=== PATIENT | male | born 1925 | race Caucasian/White ===

== ENCOUNTER 2017-03-20 19:46 | Inpatient (IN) | payer MEDICARE, SELFPAY ==
--- NOTE | ~2017-03-20 | CN ---
Consultation Report [id number] [place]. [address] NAME: DAVID BUI : [birth year] STATUS : ADM IN PAT#: [id number] AGE: 89 ADM/REG DATE : 03/21/17 MR#: [id number] REPORT SERV DATE: 03/21/17 DICTATED BY: DATE: REPORT STATUS : Draft TRANSCRIBED BY: MODL DATE: 03/21/17 CONSULTATION DATE OF CONSULTATION: 03/21/2017 CHIEF COMPLAINT/REASON FOR CONSULT: Presyncope and asymptomatic bradycardia. PRIMARY ABRASIVE COATING MACHINE OPERATOR: Dash Boston M.D. HISTORY OF PRESENT ILLNESS: Mr. Bui is a very delightful 89-year-old gentleman, who is very active, who has been having increasing lightheadedness most recently on Thursday morning on the day of admission, the patient was at the bank standing up when he suddenly became weak and dizzy. He got very pale and felt like he might pass out. He states that this is the worst episode yet. He has not had any chest pain. He denies any shortness of breath. He is quite active. He has a big garden. He said he is the best card in the formerly [facility] and weather permitting he works in his yard daily without symptoms with the exception of lightheadedness. PAST MEDICAL HISTORY: 1. Coronary artery disease, status post PCI to the RCA in 2009. 2. Hypertension. 3. Hyperlipidemia. 4. Paroxysmal atrial fibrillation. 5. Right bundle branch block. 6. Left anterior fascicular block. SOCIAL HISTORY: The patient is quite active. He lives in his own home. He does not smoke tobacco, but he has chewed tobacco for about 25 to 30 years. He does not use alcohol or extracurricular drugs. FAMILY HISTORY: Negative. ALLERGIES: NO KNOWN DRUG ALLERGIES. OUTPATIENT MEDICATIONS: 1. Aspirin 81 mg p.o. daily. 2. Uroxatral. 3. B complex vitamins. 4. Clopidogrel 75 mg p.o. daily. 5. Meclizine 12.5 mg t.i.d. 6. Milk of magnesia. 7. Simvastatin 40 mg p.o. daily. REVIEW OF SYSTEMS: Consultation Report [address] [place]. [address] NAME: DAVID BUI : [birth year] STATUS : ADM IN PAT#: [id number] AGE: 89 ADM/REG DATE : 03/21/17 MR#: [id number] REPORT SERV DATE: 03/21/17 DICTATED BY: DATE: REPORT STATUS : Draft TRANSCRIBED BY: MODL DATE: 03/21/17 All systems were reviewed and is negative except for dictated in HPI. PHYSICAL EXAMINATION: VITAL SIGNS: The patient is afebrile, pulse ranged between 45 and 72 beats per minute, oxygen saturations 95% on room air, respirations 18, blood pressures range between 139/65 to 164/70, and weight is 63 kg. GENERAL: Mr. Bui is a well-appearing 89-year-old gentleman, who appears younger than his stated age. NECK: No jugular venous distention. No carotid bruits. HEART: Bradycardic, soft S1 and S2. I could not appreciate murmurs, rubs, or gallops. LUNGS: Clear to auscultation in all bailey. ABDOMEN: Soft and nontender. I could not appreciate renal bruits. EXTREMITIES: Femoral pulses +2 bilaterally. There are bilateral femoral bruits. There is trace edema at the ankles bilaterally. MUSCULOSKELETAL: No clubbing or cyanosis of the digits. Osteoarthritic changes noted in the hands bilaterally. NEUROLOGIC: The patient is mildly hard of hearing, but otherwise I could not appreciate focal neurologic deficits. REVIEW OF TEST RECORDS/MEDICAL DECISION MAKING: EKG performed on admission documented sinus bradycardia at 48 beats per minute. There is a right bundle branch block and left anterior fascicular block with a left axis deviation present. There is no ischemic ST-T segment changes. A chest x-ray, performed on admission documented no evidence of acute cardiopulmonary disease. Carotid ultrasound performed yesterday demonstrated category one less than 50% blockage bilaterally. A brain CT examination performed without contrast demonstrated cerebral and cerebellar atrophy with intracranial atherosclerosis, but no acute intracardiac process present. LABORATORY RESULTS: Demonstrated hemoglobin of 12.8, hematocrit of 38.1, and platelet count of 215, INR of 1.1. Sodium 146, potassium 3.9, BUN 14, creatinine 0.87, total cholesterol 136, HDL 41, LDL 78, cardiac troponin is 0.02 x3. TSH 2.03. BNP is 36. IMPRESSION REPORT AND PLAN: 1. Presyncope in the setting of bradycardia. 2. Right bundle branch block with a left axis deviation, likely left anterior fascicular block and bifascicular block. 3. Paroxysmal atrial fibrillation, on anticoagulation for his primary director of corporate responsibility. 4. History of coronary artery disease, status post PCI on 12/2009. RECOMMENDATIONS: 1. Would check echocardiogram to evaluate left ventricular systolic function. 2. Continue telemetry monitoring at this time. 3. Would avoid any rate controlling agents, calcium channel blockers and beta blockers. 4. I will have my electrophysiology colleagues also reviewed this case for possible pacemaker placement versus loop recorder or event monitor. Consultation Report [id number] [place]. [address] NAME: DAVID BUI : [birth year] STATUS : ADM IN PAT#: [id number] AGE: 89 ADM/REG DATE : 03/21/17 MR#: [id number] REPORT SERV DATE: 03/21/17 DICTATED BY: DATE: REPORT STATUS : Draft TRANSCRIBED BY: MODL DATE: 03/21/17 5. It has been my pleasure to participate in this patient's care. We will follow with you. [facility] Jayne Harris M.D. / [id number] CC: Matthew Pérez Jr, MD
--- NOTE | ~2017-03-20 | DS ---
Discharge Summary [facility] [address] [place]. [address] NAME: DAVID BUI : [birth year] STATUS : ADM IN [facility]#: [id number] AGE: 89 ADM/REG DATE : 03/21/17 MR#: [id number] REPORT SERV DATE: 03/23/17 DICTATED BY: Linnea ZELAYA DATE: 03/23/17 REPORT STATUS : Draft TRANSCRIBED BY: MODL DATE: 03/23/17 ADMISSION DATE: 03/20/2017 DISCHARGE DATE: 03/23/2017 DIAGNOSES AT DISCHARGE: Syncope secondary to symptomatic bradycardia from sick sinus syndrome, status post permanent pacemaker. CONSULT: Electrophysiology/Cardiology. PROCEDURE: Pacemaker placement. BRIEF HOSPITAL COURSE: An 89-year-old male patient was admitted with dizziness and syncope and found to have underlying conduction problems consistent with intrinsic electrical disease of the heart and sick sinus syndrome, seen and evaluated by electrophysiology, ultimately taken for permanent pacemaker, which was placed on 03/23/2017 without difficulty. Following the procedure, the patient was asymptomatic. Followup x-ray was free of pneumothorax. The patient was cleared for discharge home by Cardiology and Electrophysiology. He will follow up with his primary air transportation provider as well as with his primary care provider. He will continue his current home medications per his med reconciliation form. Dr. Boston, his primary air transportation provider, will see him on 05/05/2017, and he will follow up in [facility] on 04/14/2017. He will follow up with Dr. Chen, in [facility], his primary care provider in two weeks. DICTATED BY: Linnea Zelaya M.D. [facility] Linnea Zelaya M.D. / [id number] CC: Matthew Pérez Jr, MD
--- NOTE | ~2017-03-20 | HP ---
History And Physical [facility] [address] [place]. [address] NAME: DAVID BUI : [birth year] STATUS : ADM Jaun PAT#: [id number] AGE: 89 ADM/REG DATE : 03/20/17 MR#: [id number] REPORT SERV DATE: 03/20/17 DICTATED BY: BARBARA NUÑEZ DATE: 03/20/17 REPORT STATUS : Draft TRANSCRIBED BY: MODKylah DATE: 03/20/17 DATE OF ADMISSION: 03/20/2017 CHIEF COMPLAINT: Near syncope, dizziness that has been getting progressively worse over the last couple of months. HISTORY OF PRESENT ILLNESS: This is a very pleasant 89 years old gentleman. He has a history of coronary artery disease, status post prior PTCA and stent, prior history of hypertension not on current medication, hyperlipidemia, history of prostate cancer which has been started with hormone treatment every six months presenting today to [facility] with complaints of near syncopal episodes that was happening today. The patient has been complaining of dizziness with intermittent dizzy spells according to the patient for few years, and that has become progressively worse over the last couple of months. The patient although he has this dizzy spell never passed out. He fell couple of weeks ago he said possibly related to his dizziness and unsteadiness but he never passed out completely. He has been seen by his primary care provider yesterday who prescribed him some meclizine as needed, today though he went to his bank, he is very active and while he was sitting in the line to make his payment, he had an episode of dizziness. He felt that he is going to pass out, became diaphoretic. He never passed out. He has been placed in the chair, and this did not last very long though the patient thinks that it lasted for few minutes. He has been aware of what was going on at the time of the event and after that, he has been taken back by his family at home and brought him to [facility] for further evaluation and treatment. He had some weakness but no other neurological complaints like headaches although when he has had these episodes of dizziness and presyncope, he feels his head in full, but he did not have any diplopia, he did not have any dysphagia, dysarthria. He has not had any chest pain or shortness of breath. No palpitations. No nausea or vomiting. No diarrhea or constipation. No increased urinary frequency or urgency. No other complaints. The patient has been evaluated in the emergency room, and Hospitalist Service has been asked for admission, further evaluation, and treatment. PAST MEDICAL HISTORY: Significant for coronary artery disease status post prior stents, history of prostate cancer, and hyperlipidemia. PAST SURGICAL HISTORY: Includes PTCA and stent, also cataract surgery, and prostate biopsy. SOCIAL HISTORY: Denies tobacco, alcohol, or IV drugs. ALLERGIES: HE DOES NOT HAVE ANY DRUG ALLERGIES. FAMILY HISTORY: Significant for coronary artery disease, cancer, and diabetes type 2. MEDICATIONS: At home include Uroxatral, Artificial Tears, aspirin, B complex, Plavix, meclizine, milk of magnesia, and Zocor. REVIEW OF SYSTEMS: A 14-point review of systems has been obtained, and pertinent positive has been listed into History And Physical [address] [address] NAME: DAVID BUI : [birth year] STATUS : ADM Jaun PAT#: [id number] AGE: 89 ADM/REG DATE : 03/20/17 MR#: [id number] REPORT SERV DATE: 03/20/17 DICTATED BY: BARBARA NUÑEZ DATE: 03/20/17 REPORT STATUS : Draft TRANSCRIBED BY: NAWAF DATE: 03/20/17 the history of present illness. Otherwise, negative except those underlying above. PHYSICAL EXAMINATION: VITAL SIGNS: The patient is afebrile. Blood pressure 163/73 heart rate 72, respiratory rate 14, saturating 97% on room air. GENERAL: He is a very pleasant, well-developed, well-nourished gentleman, in no acute distress. He is alert and oriented x3. He is nonfocal. He follows all his commands appropriately. HEENT: Shows pupils equal, round, reactive to light. Extraocular movements intact. NECK: No JVD. No lymphadenopathy. No thyromegaly appreciated. CHEST: Eval shows bilateral air entry. Clear anteroposterior. No wheezes, crackles, or rhonchi appreciated. CARDIOVASCULAR: He has regular rate and rhythm. S1, S2 positive. No S3, no S4. No murmurs, rubs, or gallops appreciated. ABDOMEN: Soft with positive bowel sounds. Nontender. No guarding. No rebound. EXTREMITIES: No clubbing, cyanosis, or edema. NEUROLOGIC: He is alert and oriented x3. He is nonfocal. He follows all his commands appropriately. Cranial nerves are intact. LABORATORY DATA: Labs from today include sodium of 144, potassium 4.1, chloride 106, CO2 of 29, BUN 13, creatinine 0.91, glucose 111, calcium 9.1, magnesium 2.6, troponin I less than 0.02. White count 9.8, hemoglobin 13.3, hematocrit 39.7, platelets 223. INR is 1.1. His UA has been negative. His chest x-ray, portable, PA and lateral, performed in the emergency room shows no acute cardiopulmonary abnormality that could be identified. EKG shows normal sinus rhythm and right bundle-branch block with the left anterior fascicular block. Also on CT of the brain without contrast has shown moderate cerebral and cerebellar atrophy, but no acute abnormalities. ASSESSMENT: 1. This is a very pleasant 89 years old gentleman with near syncope and dizziness. 2. History of coronary artery disease, status post PTCA and stent. 3. Hyperlipidemia. 4. History of prostate cancer. PLAN: 1. The patient is going to be admitted to Hospitalist Service. We are going to place him on IV fluids. Orthostatics have been checked in the emergency room and has been negative. We are going to order an MRI of the brain, 2D echo, and carotid ultrasound. Rule out for AL by serial cardiac enzymes, serial EKGs. Continue aspirin and Plavix and also consult Neurology Dr. Dawkins per patient's family request. 2. History of coronary artery disease, status post stent. Continue aspirin and Plavix. Rule him out for AL by serial cardiac enzymes, serial EKGs. Check on 2D echo as well. History And Physical [address] [address] NAME: DAVID BUI : [birth year] STATUS : ADM Jaun PAT#: [id number] AGE: 89 ADM/REG DATE : 03/20/17 MR#: [id number] REPORT SERV DATE: 03/20/17 DICTATED BY: BARBARA NUÑEZ DATE: 03/20/17 REPORT STATUS : Draft TRANSCRIBED BY: MODL DATE: 03/20/17 3. History of prostate cancer. We are going to continue to check his orthostatics. We are going to check on vitamin B12 and folic acid. Check on TSH and a free T4 and magnesium and phosphorus level. Further workup and recommendation pending above. It is worthwhile to note that the patient is going to be followed by the hospitalist service. [facility]/MODL Barbara Nuñez M.D. / [id number] CC: Matthew Pérez Jr, MD
--- NOTE | ~2017-03-20 | CN ---
Consultation Report [id number] [place]. [address] NAME: DAVID BUI : [birth year] STATUS : ADM IN [facility]#: [id number] AGE: 89 ADM/REG DATE : 03/21/17 MR#: [id number] REPORT SERV DATE: 03/23/17 DICTATED BY: ROEL ISABEL DATE: 03/23/17 REPORT STATUS : Draft TRANSCRIBED BY: MODL DATE: 03/23/17 ELECTROPHYSIOLOGY CONSULTATION DATE OF CONSULTATION: PRIMARY DISTRIBUTION ENGINEERING TECHNOLOGIST: Dash Boston M.D. INDICATIONS: Symptomatic sinus node dysfunction. HISTORY OF PRESENT ILLNESS: David Bui is an 89-year-old man, history of coronary disease, remote PCI, intermittent dizzy spells, hypertension, hyperlipidemia, and right bundle-branch block conduction pattern. The patient presented to the emergency room with a significant lightheaded spell, near syncope, and diaphoresis. He was admitted through the emergency room overnight and has been found to have intermittent episodes of a slow heart rate. He demonstrates sinus versus junctional bradycardia down to 40 beats per minute during the daytime hours. There was apparently some lightheaded spells associated with this. No orthopnea, PND, or complaints of active chest pain. Troponin was negative x3. No orthopnea, PND, or lower extremity edema. PAST MEDICAL HISTORY: As described. PRESENT MEDICATIONS: Aspirin, Plavix, simvastatin, multivitamin, folic acid, thiamine, and B complex vitamins. ALLERGIES: NONE KNOWN. SOCIAL HISTORY: No present smoking. FAMILY HISTORY: Reviewed. Known for coronary artery disease. REVIEW OF SYSTEMS: As per the HPI. Otherwise, all other review of systems. PHYSICAL EXAMINATION: VITAL SIGNS: Blood pressure 138/60, pulse is 93, and respiratory rate is 18. GENERAL: Appears stated age, no distress. EYES: Sclerae anicteric, no arcus senilis. MOUTH: Oral mucosa moist, lips acyanotic. NECK: Jugular venous pressure normal, no carotid bruits. LUNGS: Clear to auscultation bilaterally, normal inspiratory effort. CARDIAC: Regular rate and rhythm, no murmurs, gallops or rubs. ABDOMEN: Soft, nondistended, nontender. EXTREMITIES: No edema. Consultation Report [id number] [place]. [address] NAME: DAVID BUI : [birth year] STATUS : ADM IN PAT#: [id number] AGE: 89 ADM/REG DATE : 03/21/17 MR#: [id number] REPORT SERV DATE: 03/23/17 DICTATED BY: ROEL ISABEL DATE: 03/23/17 REPORT STATUS : Draft TRANSCRIBED BY: NAWAF DATE: 03/23/17 SKIN: Warm and dry. NEURO/PSYCH: Alert and oriented, nonfocal, mood appropriate. LABORATORY AND DIAGNOSTIC DATA: Potassium 4.0, creatinine 0.9. Hemoglobin 12.8. Telemetry currently sinus rhythm. A junctional bradycardia noted. IMPRESSION: 1. Sinus node dysfunction with symptoms of significant presyncope. 2. Coronary artery disease without complaints of active angina. Troponin negative x3. 3. ECG demonstrates sinus bradycardia with bifascicular block. TSH is 2. RECOMMENDATION: Plans with implantation of a dual-chamber cardiac pacing system. I have discussed with the patient and family the rationale, logistics, and risk. The risks include, but not limited to bleeding, infection, vascular complications, failure to place lead, lead dislodgement, pneumothorax. All questions were answered. The patient and family wished to proceed. [facility] Roel Isabel M.D. / [id number] CC: Matthew Pérez Jr, MD
[2017-03-20 14:33] LABS: BASOPHILS 0.3 %; BASOPHILS ABSOLUTE 0.03 10/3/uL (0.0-0.16); EOSINOPHILS 0.4 %; EOSINOPHILS ABSOLUTE 0.04 10/3/uL (0.0-0.53); HEMATOCRIT 39.7 % (40.0-51.0); HEMOGLOBIN 13.3 g/dL (13.6-17.8); IMMATURE GRANULOCYTES 0.3 %; IMMATURE GRANULOCYTES ABSOLUTE 0.03 10/3/uL (0.0-0.11); LYMPHOCYTES 11.6 %; LYMPHOCYTES ABSOLUTE 1.14 10/3/uL (0.67-4.30); MEAN CORPUS HGB CONC 33.5 g/dL (32.0-36.0); MEAN CORPUSCULAR HEMOGLOB 30.1 pg (26.0-34.0); MEAN CORPUSCULAR VOLUME 89.8 fL (80-100); MONOCYTES 3.2 %; MONOCYTES ABSOLUTE 0.31 10/3/uL (0.21-1.20); NEUTROPHILS 84.2 %; NEUTROPHILS ABSOLUTE 8.24 10/3/uL (2.02-8.40); PLATELET COUNT 223 10/3/uL (150-400); RBC DISTRIBUTION WIDTH 12.9 % (12.0-16.0); RED CELL COUNT 4.42 10/6/uL (4.7-6.1); WHITE BLOOD CELLS 9.8 10/3/uL (4.5-10.5)
[2017-03-20 14:34] LABS: INTERNATIONAL NORMAL RATI 1.1 UNITS (-); PARTIAL THROMBO TIME 26.9 SEC (22.5-37.2); PROTIME (NOT ORD) 13.8 SEC (12.0-14.5)
[2017-03-20 14:40] LABS: MANUAL DIFF NO %
[2017-03-20 14:46] LABS: ASCORBIC ACID (UR NOT ORDER) NEG (NEG); BILIRUBIN, URINE NEGATIVE (NEG); ER URINALYSIS TAT 0 Hrs 30 Mins; KETONE, URINE NEGATIVE (NEG); LEUKOCYTE ESTERASE(NOT OR NEG (NEG); NITRITE (URINE) NEG (NEG); WBC (NOT ORDERED) (RFLEX) 3 (0-5)
[2017-03-20 14:47] LABS: BUN (BLOOD UREA NITROGEN) 13 MG/DL (6-23); CALCIUM, SERUM 9.1 MG/DL (8.5-10.4); CHLORIDE, SERUM 106 MMOL/L (96-112); CO2 (CARBON DIOXIDE) 29 MMOL/L (24-34); CREATININE 0.91 MG/DL (0.70-1.30); GFR AFRICAN AMERICAN 86 ML/MIN (>=60); GFR NON AFRICAN AMERICAN 74 ML/MIN (>=60); GLUCOSE, SERUM 111 MG/DL (60-99); POTASSIUM, SERUM 4.1 MMOL/L (3.5-5.3); SODIUM, SERUM 144 MMOL/L (135-148); TROPONIN I <0.02 NG/ML (<0.05)
[2017-03-20 14:49] LABS: ER CBC TAT 0 Hrs 11 Mins
[~2017-03-20 19:46] MED LIST: ASAB PO; B COMPLETE PO; MCZ25 PO; MOMUD PO; PLAVIX PO; TEARS PURE OPH; UROXATRAL PO; ZOCOR40 PO
[2017-03-20 23:02] LABS: B NATRIURETIC PEPTIDE (BNP) 36.7 PG/ML (< 100.0)
[2017-03-20 23:19] LABS: CPK 47 U/L (0-200); FERRITIN 87 NG/ML (26-388); FREE T4 0.95 NG/DL (0.76-1.46); IRON BINDING CAPACITY 237 MCG/DL (250-450); IRON, SERUM 41 MCG/DL (35-150); PHOSPHORUS, SERUM 3.6 MG/DL (2.5-4.5); TROPONIN I 0.02 NG/ML (<0.05)
[2017-03-20 23:21] LABS: CK-MB 1.7 NG/ML; FOLATE 15.6 NG/ML (>5.2)
[2017-03-21 07:06] LABS: BASOPHILS 0.6 %; BASOPHILS ABSOLUTE 0.04 10/3/uL (0.0-0.16); EOSINOPHILS 1.9 %; EOSINOPHILS ABSOLUTE 0.12 10/3/uL (0.0-0.53); HEMATOCRIT 38.1 % (40.0-51.0); HEMOGLOBIN 12.8 g/dL (13.6-17.8); IMMATURE GRANULOCYTES 0.3 %; IMMATURE GRANULOCYTES ABSOLUTE 0.02 10/3/uL (0.0-0.11); MEAN CORPUS HGB CONC 33.6 g/dL (32.0-36.0); MEAN CORPUSCULAR HEMOGLOB 30.2 pg (26.0-34.0); MEAN CORPUSCULAR VOLUME 89.9 fL (80-100); MEAN PLATELET VOLUME 8.9 fL (9.2-13.0); MONOCYTES 6.2 %; NEUTROPHILS ABSOLUTE 4.05 10/3/uL (2.02-8.40); PLATELET COUNT 215 10/3/uL (150-400); RBC DISTRIBUTION WIDTH 12.5 % (12.0-16.0); RED CELL COUNT 4.24 10/6/uL (4.7-6.1); WHITE BLOOD CELLS 6.4 10/3/uL (4.5-10.5)
[2017-03-21 07:07] LABS: MANUAL DIFF NO %
[2017-03-21 07:19] LABS: GLYCOHEMOGLOBIN (HbA1c) 5.4 % (4.7-6.1)
[2017-03-21 07:27] LABS: A/G RATIO 1.1 (0.7-1.9); ALBUMIN 3.1 G/DL (3.5-5.0); ALKALINE PHOSPHATASE 83 U/L (45-117); BUN (BLOOD UREA NITROGEN) 14 MG/DL (6-23); CALCIUM, SERUM 8.7 MG/DL (8.5-10.4); CHLORIDE, SERUM 111 MMOL/L (96-112); CHOL/HDL RATIO(NOT ORDER) 3.3 (0-5); CHOLESTEROL 136 MG/DL (< 200); CK-MB 1.4 NG/ML; CO2 (CARBON DIOXIDE) 28 MMOL/L (24-34); CPK 49 U/L (0-200); CREATININE 0.87 MG/DL (0.70-1.30); GFR AFRICAN AMERICAN 89 ML/MIN (>=60); GFR NON AFRICAN AMERICAN 77 ML/MIN (>=60); GLOBULIN 2.9 G/DL (2.5-4.1); GLUCOSE, SERUM 92 MG/DL (60-99); HDL CHOLESTEROL 41 MG/DL (> 39); LDL CHOLESTEROL 78 MG/DL (< 130); NON-HDL CHOLESTEROL 95 MG/DL (< 160); POTASSIUM, SERUM 3.9 MMOL/L (3.5-5.3); SGOT(AST) 17 U/L (5-40); SGPT(ALT) 14 U/L (5-65); SODIUM, SERUM 146 MMOL/L (135-148); TOTAL BILIRUBIN 1.2 MG/DL (0-1.2); TRIGLYCERIDE 87 MG/DL (< 150); TROPONIN I 0.02 NG/ML (<0.05)
[2017-03-22 04:56] LABS: BUN (BLOOD UREA NITROGEN) 14 MG/DL (6-23); CHLORIDE, SERUM 110 MMOL/L (96-112); CO2 (CARBON DIOXIDE) 29 MMOL/L (24-34); GFR AFRICAN AMERICAN 87 ML/MIN (>=60); GFR NON AFRICAN AMERICAN 75 ML/MIN (>=60); GLUCOSE, SERUM 87 MG/DL (60-99); SODIUM, SERUM 143 MMOL/L (135-148)
[2017-03-23 05:36] LABS: INTERNATIONAL NORMAL RATI 1.1 UNITS (-); PROTIME (NOT ORD) 13.8 SEC (12.0-14.5)
[2017-03-23 05:38] LABS: BASOPHILS 0.8 %; BASOPHILS ABSOLUTE 0.06 10/3/uL (0.0-0.16); EOSINOPHILS 2.1 %; EOSINOPHILS ABSOLUTE 0.16 10/3/uL (0.0-0.53); HEMATOCRIT 37.3 % (40.0-51.0); HEMOGLOBIN 12.6 g/dL (13.6-17.8); IMMATURE GRANULOCYTES 0.3 %; IMMATURE GRANULOCYTES ABSOLUTE 0.02 10/3/uL (0.0-0.11); LYMPHOCYTES 27.4 %; LYMPHOCYTES ABSOLUTE 2.11 10/3/uL (0.67-4.30); MEAN CORPUS HGB CONC 33.8 g/dL (32.0-36.0); MEAN CORPUSCULAR VOLUME 88.8 fL (80-100); MONOCYTES 6.5 %; NEUTROPHILS 62.9 %; NEUTROPHILS ABSOLUTE 4.86 10/3/uL (2.02-8.40); PLATELET COUNT 212 10/3/uL (150-400); RBC DISTRIBUTION WIDTH 12.6 % (12.0-16.0); WHITE BLOOD CELLS 7.7 10/3/uL (4.5-10.5)
[2017-03-23 05:39] LABS: CALCIUM, SERUM 8.8 MG/DL (8.5-10.4); CHLORIDE, SERUM 109 MMOL/L (96-112); CO2 (CARBON DIOXIDE) 26 MMOL/L (24-34); CREATININE 0.91 MG/DL (0.70-1.30); GFR AFRICAN AMERICAN 86 ML/MIN (>=60); GFR NON AFRICAN AMERICAN 74 ML/MIN (>=60); GLUCOSE, SERUM 101 MG/DL (60-99); POTASSIUM, SERUM 3.9 MMOL/L (3.5-5.3); SODIUM, SERUM 142 MMOL/L (135-148)
[2017-03-23 05:40] LABS: BUN (BLOOD UREA NITROGEN) 10 MG/DL (6-23)
[2017-03-23 05:41] LABS: MANUAL DIFF NO %
[2017-03-23] MEDS ORDERED: ULTRAM50 PO (16:26)
== END 2017-03-23 17:34 | disposition home or self-care (01) | DRG 243 ==
LOC: ER 19:46 → 5NO 19:54
PROVIDERS: Emergency Medicine; Internal Medicine
PROC: 0JH606Z Insertion of Pacemaker, Dual Chamber into Chest Subcutaneous Tissue and Fascia, Open Approach (ICD-10-PCS; principal; 2017-03-23)
PROC: 02H63JZ Insertion of Pacemaker Lead into Right Atrium, Percutaneous Approach (ICD-10-PCS; 2017-03-23)
PROC: 02HK3JZ Insertion of Pacemaker Lead into Right Ventricle, Percutaneous Approach (ICD-10-PCS; 2017-03-23)
DX: I49.5 Sick sinus syndrome (principal); I45.2 Bifascicular block; I48.0 Paroxysmal atrial fibrillation; R55 Syncope and collapse; I25.10 Atherosclerotic heart disease of native coronary artery without angina pectoris; Z85.46 Personal history of malignant neoplasm of prostate; Z87.891 Personal history of nicotine dependence; Z95.5 Presence of coronary angioplasty implant and graft; Z79.82 Long term (current) use of aspirin; Z79.02 Long term (current) use of antithrombotics/antiplatelets
CPT/HCPCS: 33208; 70450; 70551; 71010; 71020; 80048; 80053; 80061; 81001; 82140; 82550; 82553; 82607; 82728; 82746; 83036; 83540; 83550; 83615; 83735; 83880; 84100; 84439; 84443; 84484; 85025; 85610; 85730; 93005; 93306; 93880; 99285; A9270-GY; C1785; C1892; C1898; J0690; J2370; J3010

== ENCOUNTER 2017-03-28 17:34 | Observation (INO) | payer MEDICARE, OTHER ==
--- NOTE | ~2017-03-28 | HP ---
History And Physical [id number] [place]. [address] NAME: DAVID BUI : [birth year] STATUS : DIS Jaun PAT#: [id number] AGE: 89 ADM/REG DATE : 03/28/17 MR#: [id number] REPORT SERV DATE: 03/29/17 DICTATED BY: DILLAN RAMOS DATE: 03/29/17 REPORT STATUS : Draft TRANSCRIBED BY: MODL DATE: 03/29/17 DATE OF ADMISSION: 03/28/2017 HEALTH MANAGEMENT CONSULTANT: Dr. Isabel. CHIEF COMPLAINT: Sharp chest pain, postop day #5 from permanent pacemaker, that resolved with narcotic pain medication in the ER. HISTORY OF PRESENT ILLNESS: This is a pleasant hard of hearing 89-year-old, white male with history of remote CAD, hypertension, hyperlipidemia. He recently was hospitalized with symptomatic bradycardia and he underwent a permanent pacemaker by Dr. Isabel prior to discharge on 03/23/2017. He was feeling better. Finally, yesterday morning with less discomfort at the pacemaker site, but then he developed sharp right-sided chest pain that was severe. It radiated down to the subcostal area. He did also have some soreness at the pacemaker site. He denied any palpitations, shortness of breath, or any other symptoms. He reports that he has been following the post pacemaker instructions. He denied any fever. His daughter brought him to the emergency room, where they gave him Dilaudid and his symptoms fully resolved. He then had another episode of this sharp right-sided chest pain that again resolved with Dilaudid and then Percocet. He has had no recurrence since then. He is currently feeling well at this present time. In the emergency department, they did check a CTA of his chest and CTA of the chest revealed no pulmonary emboli. The 2-lead cardiac pacemaker was appropriately noted in paced. On telemetry, he was pacing appropriately. Chest x-ray revealed COPD, but no acute processes. Labs were benign. Troponin was less than 0.02 x2. PAST MEDICAL HISTORY: 1. Hypertension. 2. Hyperlipidemia. 3. CAD, status post remote PCI. 4. Right bundle branch block. 5. Near syncope. 6. Intermittent dizzy spells. 7. Bradycardia, status post permanent dual chamber MRI conditional pacemaker that was placed on 03/23/[address] Isabel who saw the patient in consultation in the hospital. SOCIAL HISTORY: . Lives at home. Denies tobacco, alcohol, or illicit drug use. FAMILY HISTORY: Positive for CAD. REVIEW OF SYSTEMS: As above per HPI, all other systems reviewed and negative. ALLERGIES: NO ALLERGIES LISTED IN THE COMPUTER SYSTEM. HOME MEDICATIONS: Home medication list is on the chart and is as follows: 1. Uroxatral 10 mg p.o. daily. History And Physical [address] [address] NAME: DAVID BUI : [birth year] STATUS : DIS Jaun PAT#: [id number] AGE: 89 ADM/REG DATE : 03/28/17 MR#: [id number] REPORT SERV DATE: 03/29/17 DICTATED BY: DILLAN RAMOS DATE: 03/29/17 REPORT STATUS : Draft TRANSCRIBED BY: NAWAF DATE: 03/29/17 2. Artificial Tears one drop both eyes scheduled. 3. Aspirin 81 mg p.o. daily. 4. Vitamin B with biotin and folic acid one tablet p.o. daily. 5. Plavix 75 mg p.o. daily. 6. Meclizine 12.5 mg p.o. three times a day as needed for dizziness. 7. Milk of magnesia 5 mL p.o. at bedtime. 8. Simvastatin 40 mg p.o. daily. 9. Tramadol 50 mg p.o. every 4 hours as needed for pain. PHYSICAL EXAMINATION: VITAL SIGNS: Oxygen saturation 97% on room air, weight 62.14 kg, temperature 98.3, pulse approximately 60, respiratory rate 16, blood pressure 126/60. GENERAL: Well-developed, well-nourished. Hard of hearing. In no apparent distress. Frail. HEENT: Head normocephalic. No xanthelasma. Sclera clear, anicteric. Moist mucous membranes without pallor. No lymphadenopathy. No deficits noted. NECK: Trachea midline. Supple. No thyromegaly, JVD, or bruits. RESPIRATORY: Unlabored respirations. Breath sounds clear bilaterally to posterior auscultation. No wheezes, rhonchi or crackles. CARDIOVASCULAR: Regular rate and rhythm. No murmur, rub, or gallop appreciated. Permanent pacemaker site noted on the left chest wall. He has Steri-Strips overlying the pacemaker site. It is intact, clean, and dry. There are no bogginess, effusions, oozing, erythema. No ecchymosis over that site. It is nontender to palpation. It appears appropriate. Left upper arm does have some healing bruises, again Steri-Strips are in place, and I personally reviewed the bandage and evaluated the pacemaker site. ABDOMEN: Soft, nontender, and nondistended. Active bowel sounds auscultated x4 quadrants. No organomegaly and no masses. No aortic bruit. EXTREMITIES: DP/PT and radial pulses 2+ bilaterally. No clubbing, cyanosis, or edema. SKIN: Warm, dry, intact. No rash. Normal turgor. MUSCULOSKELETAL: Moves all extremities in bed without difficulty. NEURO/PSYCH: Alert and oriented x3 with no acute distress. Affect appropriate to current situation. LABORATORY DATA: BMP: Sodium 139, potassium 4.1, creatinine 0.8, glucose 113, calcium 8.9, magnesium 2.5. CBC: White blood cell count 10, hemoglobin 12.5, hematocrit 37.3, platelets 209. Troponin less than 0.02 x2. CTA of the chest performed in the emergency department, no CTA evidence of pulmonary embolus. Small nonspecific right pleural effusion. 2-lead cardiac pacemaker in place. exophytic simple cyst upper left pole kidney. Lung windows show no evidence of focal infiltrate, mediastinum, or pneumothorax. Telemetry, normal sinus rhythm/atrial paced at 60, no events. ASSESSMENT AND PLAN: History And Physical [address] [address] NAME: DAVID BUI : [birth year] STATUS : DIS Jaun PAT#: [id number] AGE: 89 ADM/REG DATE : 03/28/17 MR#: [id number] REPORT SERV DATE: 03/29/17 DICTATED BY: DILLAN RAMOS DATE: 03/29/17 REPORT STATUS : Draft TRANSCRIBED BY: NAWAF DATE: 03/29/17 1. Sharp atypical chest pain. This several episodes of sharp atypical chest pain in a patient who is recently postop from permanent pacemaker, this sounds non cardiac. He was ruled out for acute coronary syndrome with two negative troponins. CTA showed no pulmonary emboli, no pneumothorax, and pacemaker appropriately in paced. We note that his chest pain is fully resolved with Percocet and he remains chest pain-free at this time. We will provide symptomatic treatment with several days worth of Percocet as needed in place of tramadol which is what he was initially prescribed post pacemaker insertion. He will be discharged to home after conferring with Dr. Alfredo who also saw the patient in the [facility]. Again, he has no shortness of breath, no exertional component to the chest pain. I did also reinforce the postop pacer instructions which he reports he has been following. He is to [facility] up [facility] which the appointment is in the next week to two weeks. He is also to follow up with his primary cyber systems administrator. The patient is being discharged to home at this time. 2. Bradycardia, status post permanent pacemaker. Please see above. 3. History of coronary artery disease with no anginal symptoms. No chest pain with exertion. We will continue his current home medications. He is to follow up with his cyber systems administrator and with claims manager (his cyber systems administrator is Dr. Dash Boston). The patient was also seen by Dr. Alfredo in the [facility]. KL/MODL Dillan Ramos NP / [id number] CC: Dee Dee Cunningham, ANASTASIA, BUSINESS ANALYSIS ANALYST-BC MD Roel Coello M.D.
[2017-03-28 15:50] LABS: BASOPHILS 0.4 %; BASOPHILS ABSOLUTE 0.04 10/3/uL (0.0-0.16); EOSINOPHILS 1.6 %; EOSINOPHILS ABSOLUTE 0.16 10/3/uL (0.0-0.53); ER CBC TAT 0 Hrs 09 Mins; HEMATOCRIT 37.3 % (40.0-51.0); HEMOGLOBIN 12.5 g/dL (13.6-17.8); IMMATURE GRANULOCYTES 0.2 %; IMMATURE GRANULOCYTES ABSOLUTE 0.02 10/3/uL (0.0-0.11); LYMPHOCYTES 14.4 %; LYMPHOCYTES ABSOLUTE 1.44 10/3/uL (0.67-4.30); MEAN CORPUS HGB CONC 33.5 g/dL (32.0-36.0); MEAN CORPUSCULAR VOLUME 89.7 fL (80-100); MONOCYTES 4.2 %; MONOCYTES ABSOLUTE 0.42 10/3/uL (0.21-1.20); NEUTROPHILS 79.2 %; NEUTROPHILS ABSOLUTE 7.92 10/3/uL (2.02-8.40); PLATELET COUNT 209 10/3/uL (150-400); RBC DISTRIBUTION WIDTH 12.7 % (12.0-16.0); RED CELL COUNT 4.16 10/6/uL (4.7-6.1)
[2017-03-28 15:51] LABS: MANUAL DIFF NO %
[2017-03-28 15:58] LABS: INTERNATIONAL NORMAL RATI 1.1 UNITS (-); PARTIAL THROMBO TIME 30.5 SEC (22.5-37.2); PROTIME (NOT ORD) 13.8 SEC (12.0-14.5)
[2017-03-28 16:07] LABS: BUN (BLOOD UREA NITROGEN) 10 MG/DL (6-23); CALCIUM, SERUM 8.9 MG/DL (8.5-10.4); CHEST PAIN PROFILE TAT 0 Hrs 26 Mins; CHLORIDE, SERUM 104 MMOL/L (96-112); CO2 (CARBON DIOXIDE) 29 MMOL/L (24-34); GFR AFRICAN AMERICAN 92 ML/MIN (>=60); GFR NON AFRICAN AMERICAN 79 ML/MIN (>=60); GLUCOSE, SERUM 113 MG/DL (60-99); POTASSIUM, SERUM 4.1 MMOL/L (3.5-5.3); SODIUM, SERUM 139 MMOL/L (135-148); TROPONIN I <0.02 NG/ML (<0.05)
[~2017-03-28 17:34] MED LIST changes: +ULTRAM50 PO
[2017-03-29] MEDS ORDERED: PCET PO (13:43)
== END 2017-03-29 14:21 | disposition home or self-care (01) ==
LOC: ER 17:34 → CDU1 20:49
PROVIDERS: Emergency Medicine
DX: R07.89 Other chest pain (principal); I10 Essential (primary) hypertension; I25.10 Atherosclerotic heart disease of native coronary artery without angina pectoris; I45.10 Unspecified right bundle-branch block; E78.5 Hyperlipidemia, unspecified; Z82.49 Family history of ischemic heart disease and other diseases of the circulatory system; Z95.0 Presence of cardiac pacemaker; Z79.82 Long term (current) use of aspirin; Z79.02 Long term (current) use of antithrombotics/antiplatelets; Z79.899 Other long term (current) drug therapy
CPT/HCPCS: 71020; 71275; 80048; 81001; 83735; 84484; 85025; 85610; 85730; 93005; 96374; 96375; 96376; 99285; A9270-GY; G0378; J1170; J2405; Q9967

== ENCOUNTER 2017-04-01 10:12 | Emergency (ER) | payer MEDICARE ==
[2017-04-01 09:17] LABS: BASOPHILS 0.2 %; BASOPHILS ABSOLUTE 0.02 10/3/uL (0.0-0.16); EOSINOPHILS 0.2 %; EOSINOPHILS ABSOLUTE 0.02 10/3/uL (0.0-0.53); ER CBC TAT 0 Hrs 03 Mins; HEMATOCRIT 34.7 % (40.0-51.0); HEMOGLOBIN 11.6 g/dL (13.6-17.8); IMMATURE GRANULOCYTES 0.5 %; IMMATURE GRANULOCYTES ABSOLUTE 0.05 10/3/uL (0.0-0.11); LYMPHOCYTES 7.3 %; LYMPHOCYTES ABSOLUTE 0.77 10/3/uL (0.67-4.30); MANUAL DIFF NO %; MEAN CORPUS HGB CONC 33.4 g/dL (32.0-36.0); MEAN CORPUSCULAR HEMOGLOB 29.8 pg (26.0-34.0); MEAN CORPUSCULAR VOLUME 89.2 fL (80-100); MEAN PLATELET VOLUME 8.8 fL (9.2-13.0); MONOCYTES 3.1 %; MONOCYTES ABSOLUTE 0.33 10/3/uL (0.21-1.20); NEUTROPHILS 88.7 %; NEUTROPHILS ABSOLUTE 9.38 10/3/uL (2.02-8.40); PLATELET COUNT 220 10/3/uL (150-400); RBC DISTRIBUTION WIDTH 12.5 % (12.0-16.0); RED CELL COUNT 3.89 10/6/uL (4.7-6.1); WHITE BLOOD CELLS 10.6 10/3/uL (4.5-10.5)
[2017-04-01 09:30] LABS: BUN (BLOOD UREA NITROGEN) 13 MG/DL (6-23); CALCIUM, SERUM 9.5 MG/DL (8.5-10.4); CHLORIDE, SERUM 102 MMOL/L (96-112); CO2 (CARBON DIOXIDE) 31 MMOL/L (24-34); CREATININE 0.91 MG/DL (0.70-1.30); GFR AFRICAN AMERICAN 86 ML/MIN (>=60); GFR NON AFRICAN AMERICAN 74 ML/MIN (>=60); GLUCOSE, SERUM 144 MG/DL (60-99); POTASSIUM, SERUM 3.7 MMOL/L (3.5-5.3); SODIUM, SERUM 138 MMOL/L (135-148)
[~2017-04-01 10:12] MED LIST changes: +PCET PO
[2017-04-01 11:26] LABS: WBC (NOT ORDERED) (RFLEX) 0 (0-5)
[2017-04-01 11:41] LABS: ASCORBIC ACID (UR NOT ORDER) NEG (NEG); BILIRUBIN, URINE NEGATIVE (NEG); ER URINALYSIS TAT 0 Hrs 15 Mins; KETONE, URINE 20 MG/DL (NEG); LEUKOCYTE ESTERASE(NOT OR NEG (NEG); NITRITE (URINE) NEG (NEG)
== END 2017-04-01 12:19 | disposition home or self-care (01) ==
LOC: ER 10:12
PROVIDERS: Emergency Medicine
DX: K59.00 Constipation, unspecified (principal); I10 Essential (primary) hypertension; I25.10 Atherosclerotic heart disease of native coronary artery without angina pectoris; Z95.0 Presence of cardiac pacemaker; I45.10 Unspecified right bundle-branch block; Z79.82 Long term (current) use of aspirin; Z79.899 Other long term (current) drug therapy
CPT/HCPCS: 74022; 80048; 81001; 85025; 99284

== ENCOUNTER 2017-04-08 15:53 | Emergency (ER) | payer MEDICARE, OTHER ==
[2017-04-08 15:34] LABS: BASOPHILS 0.4 %; BASOPHILS ABSOLUTE 0.04 10/3/uL (0.0-0.16); EOSINOPHILS 0.8 %; EOSINOPHILS ABSOLUTE 0.08 10/3/uL (0.0-0.53); ER CBC TAT 0 Hrs 05 Mins; HEMATOCRIT 34.5 % (40.0-51.0); HEMOGLOBIN 11.6 g/dL (13.6-17.8); IMMATURE GRANULOCYTES 0.3 %; IMMATURE GRANULOCYTES ABSOLUTE 0.03 10/3/uL (0.0-0.11); LYMPHOCYTES 11.9 %; LYMPHOCYTES ABSOLUTE 1.25 10/3/uL (0.67-4.30); MEAN CORPUS HGB CONC 33.6 g/dL (32.0-36.0); MEAN CORPUSCULAR HEMOGLOB 29.7 pg (26.0-34.0); MEAN CORPUSCULAR VOLUME 88.2 fL (80-100); MEAN PLATELET VOLUME 8.8 fL (9.2-13.0); MONOCYTES 4.1 %; MONOCYTES ABSOLUTE 0.43 10/3/uL (0.21-1.20); NEUTROPHILS 82.5 %; NEUTROPHILS ABSOLUTE 8.71 10/3/uL (2.02-8.40); RBC DISTRIBUTION WIDTH 12.8 % (12.0-16.0); RED CELL COUNT 3.91 10/6/uL (4.7-6.1); WHITE BLOOD CELLS 10.5 10/3/uL (4.5-10.5)
[2017-04-08 15:36] LABS: MANUAL DIFF NO %; PLATELET COUNT 335 10/3/uL (150-400)
[2017-04-08 15:42] LABS: INTERNATIONAL NORMAL RATI 1.1 UNITS (-); PARTIAL THROMBO TIME 31.6 SEC (22.5-37.2); PROTIME (NOT ORD) 13.9 SEC (12.0-14.5)
[2017-04-08 15:50] LABS: CHEST PAIN PROFILE TAT 0 Hrs 21 Mins; CHLORIDE, SERUM 105 MMOL/L (96-112); CO2 (CARBON DIOXIDE) 32 MMOL/L (24-34); CREATININE 0.72 MG/DL (0.70-1.30); GFR AFRICAN AMERICAN 96 ML/MIN (>=60); GFR NON AFRICAN AMERICAN 83 ML/MIN (>=60); POTASSIUM, SERUM 3.7 MMOL/L (3.5-5.3); SODIUM, SERUM 141 MMOL/L (135-148); TROPONIN I <0.02 NG/ML (<0.05)
[2017-04-08 15:51] LABS: BUN (BLOOD UREA NITROGEN) 8 MG/DL (6-23); GLUCOSE, SERUM 106 MG/DL (60-99)
[2017-04-08] MEDS ORDERED: LINZESS 290 M290 MCG PO (16:39)
[2017-04-08 16:50] LABS: ALBUMIN 3.3 G/DL (3.5-5.0); ALKALINE PHOSPHATASE 84 U/L (45-117); DIRECT BILIRUBIN 0.1 MG/DL (0.0-0.4); INDIRECT BILIRUBIN(NOT ORDER) 0.3 MG/DL (0.1-0.9); SGOT(AST) 19 U/L (5-40); SGPT(ALT) 19 U/L (5-65); TOTAL BILIRUBIN 0.4 MG/DL (0-1.2)
[2017-04-08] MEDS ORDERED: SENTAB PO (16:56)
== END 2017-04-08 18:44 | disposition home or self-care (01) ==
LOC: ER 15:53
PROVIDERS: Emergency Medicine
DX: R07.9 Chest pain, unspecified (principal); R10.13 Epigastric pain; I48.91 Unspecified atrial fibrillation; J44.9 Chronic obstructive pulmonary disease, unspecified; I25.10 Atherosclerotic heart disease of native coronary artery without angina pectoris; I10 Essential (primary) hypertension; I45.10 Unspecified right bundle-branch block; Z95.0 Presence of cardiac pacemaker; Z87.891 Personal history of nicotine dependence; Z79.82 Long term (current) use of aspirin; Z79.899 Other long term (current) drug therapy
CPT/HCPCS: 71020; 80048; 80076; 83690; 83735; 83880; 84484; 85025; 85610; 85730; 93005; 99285; A9270-GY